=== PATIENT | female | born 1955 | race Asian ===

== ENCOUNTER 2016-06-24 11:23 | Inpatient (IN) | payer OTHER ==
--- NOTE | 2016-06-24 11:48 | EDPHY ---
General - History Smoking Status: Never smoked Narrative: CHIEF COMPLAINT: Left hip pain, fall HISTORY OF PRESENT ILLNESS: patient was walking at work yesterday when she tripped walking through a door while carrying heavy items. She reports landing on her left side of her body. this occurred around 3:30 p.m. yesterday. Denies striking her head or loss of consciousness. No neck pain. No chest or back pain. She noted some numbness of the left hip at that time, but as the afternoon on she noted pain. This was Mild at 1st but now severe. Severe enough that she has difficulty bearing weight. She can move the hip and knee but it is incredibly painful for her to do so and bear weight. Unable to walk secondary to pain. Radiates into the hip joint. No pain in the ipsilateral distal thigh, knee, ankle or foot. No lower back pain. No numbness or tingling at this time. No other associated complaints or modifying factors PRIOR ORTHO INJURIES: none ESTABLISHED ORTHOPEDIST: none REVIEW OF SYSTEMS: Ten systems reviewed and are negative unless otherwise noted in the HPI EXAMINATION General Appearance: Alert, no distress Head: normocephalic, atraumatic Eyes: Pupils equal and round, no conjunctival pallor or injection ENT, Mouth: Mucous membranes moist Neck: Normal inspection Respiratory: No dyspnea or retractions. No distress Cardiovascular: Pulses normal throughout. symmetric radial pulses are 2+. Symmetric DP and PT pulses are 2+. Brisk cap refill Gastrointestinal: No distention . No tenderness. Back: non-tender, no bony abnormalities Neurological: A&O, sensory symmetric, strength symmetric In all limbs. Skin: Warm and dry, no rash . No contusion, hematoma, abrasion or laceration Extremities: there is point tenderness over the left greater trochanter and at the left hip joint. Range of motion is limited secondary to pain, but she can flex and extend the hip, and range of motion of the left knee, ankle and foot are fully intact. There is no cyanosis or pallor. No evidence of compartment syndrome. Psychiatric: Mood and affect normal DIFFERENTIAL DIAGNOSES: Including but not limited to hip fracture, intertrochanteric fracture, contusion, hematoma, soft tissue injury MDM: 11:45 a.m. mechanical fall with left-sided hip pain over the true joint and the greater trochanter. She has no complaints distal to the injury. No numbness or tingling. She has some weakness of the hip due to pain. She is able to range the hip and knee with very painful to do so. X-ray has been ordered. 1:00 p.m. left femoral neck fracture that is minimally displaced. Neurovascular intact distally. No trauma elsewhere. I have discussed the case with the on-call orthopedist Dr. Crouch. He is requesting a CT scan, and he is also requesting that I admit the patient to the hospitalist. I have informed the patient this scenario and she is okay with the CT scan and admission. Hospitalist has been paged. 1:10 p.m. I have discussed the case with the hospitalist (Crystal), and the patient has been accepted to Dr. Dalton. she will be admitted in stable condition. Will obtain the laboratories for preoperative, as well as the CT scan before going to the floor 2:28 p.m. notified by radiologist Dr. Min. CT scan of the hip confirms previous suspected femoral neck fracture. Minimal angulation. There is impaction. No other abnormalities noted. ED Precautions: Worsening pain. Erythema, edema, cyanosis, pallor, paresthesia or anesthesia. SUPERVISION: This patient was independently evaluated without the aide of supervising physician. (Harvey Barba) - Objective Vital Signs: Initial Vital Signs Temperature (C) 36.8 C 06/24/16 11:29 Heart Rate 86 06/24/16 11:29 Respiratory Rate 16 06/24/16 11:29 Blood Pressure 123/86 H 06/24/16 11:29 O2 Sat (%) 92 06/24/16 11:29 O2 Delivery Mode Room Air Allergies/Adverse Reactions: No Known Allergies Allergy (Unverified 01/08/15 14:23) Home Medications: Medication Instructions Recorded NK [No Known Home Meds] 06/24/16 ED Course Discussion: I did not see this patient while she was in the emergency department. However her care was discussed with the PA while the patient was in the department. I agree with treatment plan and management (Bari Cruz) Departure - Departure Disposition: [facility] Acute Clinical Impression: Injury of left hip Qualifiers: Encounter type: initial encounter Qualified Code(s): S79.912A - Unspecified injury of left hip, initial encounter Femoral neck fracture Qualifiers: Encounter type: initial encounter Fracture type: closed Laterality: left Qualified Code(s): S72.002A - Fracture of unspecified part of neck of left femur , initial encounter for closed fracture Condition: Good
[2016-06-24] MEDS ORDERED: TEMAZEPAM 15 MG CAP PO PRN (13:35)
[2016-06-24] MEDS ORDERED: ONDANSETRON DISINTEGRATING 4 MG TAB PO PRN (13:35)
[2016-06-24] MEDS ORDERED: NS 1,000 ML IV SCH (13:45)
[2016-06-24] MEDS ORDERED: BUPIVACAINE/EPI 0.5% 30 ML SDV ONE (13:53)
[2016-06-24 13:54] LABS: % IMMATURE GRANULYOCYTES 0.3 % (0.0-1.1); ABSOLUTE IMMATURE GRANULOCYTES 0.02 10^3/uL (0.00-0.10); ADD DIFF? NO; ADD MORPH? NO; ADD SCAN? NO; ATYPICAL LYMPHOCYTE FLAG 10 (0-99); FRAGMENT RBC FLAG 0 (0-99); HEMATOCRIT 40.3 % (38.0-47.0); HEMOGLOBIN 13.6 g/dL (12.6-16.3); LEFT SHIFT FLG 0 (0-99); LIPEMIA HEMOLYSIS FLAG 80 (0-99); MEAN CELL HEMOGLOBIN 31.2 pg (27.9-34.1); MEAN CELL HEMOGLOBIN CONCENTR. 33.7 g/dL (32.4-36.7); MEAN CELL VOLUME 92.4 fL (81.5-99.8); MEAN PLATELET VOLUME 10.1 fL (8.7-11.7); PLATELET CLUMPS FLAG 0 (0-99); PLATELET COUNT 207 10^3/uL (150-400); RED BLOOD CELL COUNT 4.36 10^6/uL (4.18-5.33); RED CELL DISTRIBUTION WIDTH 12.3 % (11.5-15.2)
[2016-06-24] MEDS ORDERED: SKIN ADHESIVE (DERMABOND) 1 EACH TP ONE (13:54)
--- NOTE | 2016-06-24 13:57 | CPEKG ---
Heart Rate: 78 RR Interval: 769 P-R Interval: 172 QRSD Interval: 78 QT Interval: 392 QTC Interval: 447 P Center Point: 51 QRS Center Point: 14 T Wave Center Point: 6 EKG Severity - NORMAL ECG - EKG Impression: SINUS RHYTHM Electronically Signed By: Eugenio Benson 25-Jun-2016 10:49:45
[2016-06-24 14:11] LABS: INR 1.07 (0.83-1.16); PROTIME(PATIENT) 13.8 SEC (12.0-15.0)
[2016-06-24 14:12] LABS: APTT 28.4 SEC (23.0-38.0)
[2016-06-24 14:21] LABS: ANION GAP 9 mEq/L (8-16); CALCIUM 9.1 mg/dL (8.5-10.4); CARBON DIOXIDE 23 mEq/l (22-31); CHLORIDE 105 mEq/L (97-110); CREATININE 0.5 mg/dL (0.6-1.0); GLOMERULAR FILTRATION RATE > 60; GLUCOSE 95 mg/dL (70-100); SODIUM 137 mEq/L (134-144)
--- NOTE | 2016-06-24 15:10 | GHP ---
[f rep st] HISTORY AND PHYSICAL DATE OF ADMISSION: 06/24/2016 CHIEF COMPLAINT: Fall and left hip pain. HISTORY OF PRESENT ILLNESS: This is a 60-year-old healthy female, who fell yesterday. She was at [place] [employer], carrying something heavy, missed 1 step which was about a foot tall and fell. She landed on he r left hip. She did not hit her head. She did not lose consciousness. When this happened, she inrony green had some left leg numbness, which resolved after about 30 minutes. She has been unable to be ar weight at all due to severe pain since the fall. She currently has feeling in her left foot and able to move her left foot. PAST MEDICAL/SURGICAL HISTORY: None. MEDICATIONS: None. ALLERGIES: None. FAMILY HISTORY: Her grandmother had cancer. SOCIAL HISTORY: She rarely drinks alcohol. She does not smoke. REVIEW OF SYSTEMS: Ten-point review of systems is conducted and is negative, except per HPI. PHYSICAL EXAM: VITAL SIGNS: Blood pressure 123/86, heart rate is 86, respiration rate 16, sat 92% on room air, temperature 36.8. GENERAL: The patient is a very pleasant female, who appears comfort able in bed, in no acute distress. HEENT: Pupils equal, round, reactive. Mucous membranes are kena st. CARDIOVASCULAR: Regular rate and rhythm. No murmurs, rubs, or gallops. PULMONARY: Lungs molly ar to auscultation bilaterally. ABDOMEN: Soft, nontender, nondistended. SKIN: No rash. : No Blak[place]. NEUROLOGIC: She is alert and oriented x3. She is moving all extremities. PSYCHIATRIC: No rmal mood and affect. EXTREMITIES: Her left extremity is mildly edematous in her left hip. She has a very palpable left dorsalis pedis. She has sensation and motor intact in the left foot. LABS: CBC is unremarkable. Her chemistries and coag panel are pending. DATA: 1. I discussed this with Harvey Barba, will admit to med/surg. 2. I personally viewed and interpreted her EKG. It shows T-wave inversions in V1 and V2, otherwise sinus rhythm. 3. Hip x-ray, which I personally viewed and interpreted, shows possible likely left femoral neck fr acture. IMPRESSION AND PLAN: This is a 60-year-old female with left hip fracture. 1. Left hip fracture: Dr. Crouch has been consulted. Will likely need operative fixation. She is able to attain 4 METs, has a normal EKG. Chest x-ray will be obtained, though I do not expect to f ind anything. She will likely be cleared for the operating room. She is low risk given her RI sc ore. 2. Fall: I suspect that this is mechanical. I do not suspect that this was precipitated by any mo re of a significant event. /[id number]/MODL
[2016-06-24] MEDS ORDERED: MIDAZOLAM 2 MG/2 ML VIAL ONE (16:49)
[2016-06-24] MEDS ORDERED: fentaNYL 250 MCG/5 ML INJ ONE (16:53)
[2016-06-24] MEDS ORDERED: LIDOCAINE 2% 100 MG/5 ML SYR IVP ONE (16:54)
[2016-06-24] MEDS ORDERED: DEXAMETHASONE 4 MG/ML VIAL ONE ×2 (16:54)
[2016-06-24] MEDS ORDERED: ROCURONIUM 50 MG/5 ML VIAL ONE (16:54)
[2016-06-24] MEDS ORDERED: METOCLOPRAMIDE 10 MG/2 ML VIAL ONE (16:54)
[2016-06-24] MEDS ORDERED: PROPOFOL 200 MG/20 ML VIAL ONE (16:54)
[2016-06-24] MEDS ORDERED: CEFAZOLIN 2 GM/DEXTROSE/100 ML BAG IV ONE (17:00)
[2016-06-24] MEDS ORDERED: SUGAMMADEX SODIUM 200 MG/2 ML VIAL IVP ONE (18:06)
--- NOTE | 2016-06-24 18:32 | POSTOPPROG ---
Post Op Note Date of Operation: 06/24/16 Surgeon: Valeriy Crouch Anesthesia: GET(General Endotracheal) Pre-op Diagnosis: left hip fracture Post-op Diagnosis: same Indication: same Procedure: left hip orif Inf/Abcess present in the surg proc area at time of surgery?: No Depth: Superfical (Skin SQ) EBL: 50-100
[2016-06-24] MEDS ORDERED: D5W 1/2 NS W/ 20 KCl/L 1,000 ML IV SCH (18:45)
[2016-06-24] MEDS ORDERED: fentaNYL 100 MCG/2 ML INJ ONE (19:06)
[2016-06-24] MEDS: oxyCODONE IR 5 MG TAB PO PRN (20:22)
--- NOTE | 2016-06-25 03:31 | GCON ---
[f rep st] CONSULTATION DATE OF CONSULTATION: 06/24/2016 CHIEF COMPLAINT: Left femoral neck fracture. HISTORY OF PRESENT ILLNESS: A 60-year-old female, who fell yesterday. She was at work. She took a misstep, landed on her hip. She had some numbness and the inability to bear weight. She waited un til the next day to see if this resolved and it did not. She was brought to the emergency room wher e she was diagnosed with a left femoral neck fracture, admitted to the hospital. She denies other t rauma or other injuries. PAST MEDICAL HISTORY: Denies. MEDICATIONS: Denies. ALLERGIES: Denies. FAMILY HISTORY: Grandmother with cancer. SOCIAL HISTORY: She rarely drinks. She does not smoke. REVIEW OF SYSTEMS: 10-point review of systems negative other than above. PHYSICAL EXAM: VITAL SIGNS: Stable. GENERAL: She is alert, oriented, does not appear in any acut e distress. She is in bed. HEAD: Normocephalic. EYES: Equal and reactive. MOUTH: Moist mucous membranes. NECK: Supple. CARDIOVASCULAR: She has regular rate and rhythm. PULMONARY: Lungs sh ow symmetric chest rise. ABDOMEN: Soft. UPPER EXTREMITIES: Without abnormality. Full motion. N EUROLOGIC: Intact. SKIN: Intact to the left lower extremity. I did not move this given the fract ure. She describes pain in her left hip pain. She is distally neurovascularly intact. 5/5 EHL adrian siflexion, plantar flexion, and FHL of her toe. Sensation, pulses intact to right lower extremity a nd can range well. No pain to palpation, is neurovascularly intact. Her x-rays and CT show a minimally displaced impacted femoral neck fracture in valgus. ASSESSMENT: Left femoral neck fracture. PLAN: I discussed the nature of her condition, treatment options with her. I recommended a reducti on and pinning with operative stabilization with 3 screws. Given the impacted nature, the stable na ture of this, and it was minimally displaced, I felt this could be fixed and would likely heal for h er. I discussed risks in particular of nonunion or displacement of the fracture and failure of the hardware which would necessitate total hip. Also discussed risks of nerve injury, wound complicatio ns, pain. She asked to proceed. Informed consent was obtained. All questions were answered. She was marked preoperatively. She will be admitted to the hospital. /[id number]/MODL
--- NOTE | 2016-06-25 03:51 | GOP ---
[f rep st] OPERATIVE REPORT DATE OF OPERATION: 06/24/2016 SURGEON: Valeriy Crouch MD BEARING RING ASSEMBLER: None. ANESTHESIA: General. PREOPERATIVE DIAGNOSIS: Left femoral neck fracture. POSTOPERATIVE DIAGNOSIS: Left femoral neck fracture. PROCEDURE PERFORMED: Open reduction internal fixation left femoral neck fracture. FINDINGS: SPECIMENS: None. ESTIMATED BLOOD LOSS: 20 mL. INDICATIONS: This is a 60-year-old female, with a fall and inability to bear weight. Counseled on risks, benefits of operative stabilization of this versus replacement. Elected for this as this was a stable valgus impacted and minimally displaced. Elected to proceed. Informed consent obtained. All questions were answered. She was marked preoperatively. We discussed risks of nonunion, malun ion, need for total hip, failure of the concert, complications of nerve injury. DESCRIPTION OF PROCEDURE: She was taken to the operating room, and anesthesia was induced. She was given 1 g Ancef. She was positioned on the fracture table. Sterilely prepped and draped in the no rmal fashion. Time-out was performed verifying site, side, location with agreement of the team. We made an incision after localizing a starting point. I placed a guidewire up the femoral neck. C hecked this on AP and lateral x-ray. Placed three others trying to achieve triangular construct. M easured these, and sequentially placed screws across this and felt like the fracture was stable. Th e final x-rays were checked and taken, verifying the fracture had not moved, stability of construct, and locations of screws. I irrigated and closed with 2-0 Vicryl, 3-0 Monocryl, and Dermabond. She was taken to PACU in stable condition. IMPLANTS: Synthes three 6.5 cannulated short thread screws. COMPLICATIONS: None. DRAINS: None. CONDITION: Stable. /[id number]/MODL
[2016-06-25] MEDS: oxyCODONE IR 5 MG TAB PO PRN (05:47)
[2016-06-25] MEDS: ENOXAPARIN 40 MG/0.4 ML SYR SC SCH (08:55)
--- NOTE | 2016-06-25 11:08 | HOSPPROG ---
Hospitalist Progress Note Assessment/Plan: patient is a 60-year-old female who fell yesterday at work. She was carrying something heavy and missed a step and fell. She landed on her left hip. Her hip x-ray showed a left femoral neck fracture. Today is my 1st encounter with the patient. Chart reviewed. * Left hip fracture - postop day 1. Status post ORIF * gait instability - PT and OT to see *dvt prophylaxis: LMWH *plan: repeat labs in a.m./ patient will require another midnight stay for further evaluation/ she had recent surgery, significant pain/ lives alone and has steps. Subjective: Gabi is having some pain at her hip. Objective: Vital Signs Temp Pulse Resp BP Pulse Ox 36.4 C 65 14 91/62 L 97 06/25/16 08:02 06/25/16 08:02 06/25/16 08:02 06/25/16 08:02 06/25/16 08:02 Laboratory Results 06/24/16 13:42 06/24/16 13:42 06/24/16 06/25/16 06/26/16 05:59 05:59 05:59 Intake Total 1700 Output Total 370 Balance 1330 PT 13.8 SEC (12.0-15.0) 06/24/16 13:42 INR 1.07 (0.83-1.16) 06/24/16 13:42 - Physical Exam Constitutional: no apparent distress, uncomfortable Eyes: PERRL Ears, Nose, Mouth, Throat: hearing normal Cardiovascular: regular rate and rhythym Respiratory: no respiratory distress Gastrointestinal: normoactive bowel sounds Skin: warm Musculoskeletal: muscular tenderness, generalized weakness Neurologic: AAOx3 Psychiatric: interacting appropriately ICD10 Worksheet Patient Problems: Problems Problem Status Onset Femoral neck fracture Acute Injury of left hip Acute
[2016-06-25] MEDS: ACETAMINOPHEN 325 MG TAB PO PRN ×3 (12:29→21:31)
--- NOTE | 2016-06-25 12:59 | SOAPPROG ---
SOAP Progress Note Assessment/Plan: Assessment: status post left hip ORIF 06/24/2016 Plan: she is doing well today. Weightbearing as tolerated left lower extremity Chemo and mechanical DVT prophylaxis She may leave the dressing intact until we see her back as she may shower over this. Follow-up in my clinic in 2 weeks she has my card make an appointment 06/25/16 12:57 Subjective: minimal pain in the hip when she is laying there for some pain when she ambulates Objective: Vital Signs Temp Pulse Resp BP Pulse Ox 36.6 C 75 14 113/71 92 06/25/16 12:13 06/25/16 12:13 06/25/16 12:13 06/25/16 12:13 06/25/16 12:13 Laboratory Results 06/24/16 13:42 06/24/16 13:42 06/24/16 06/25/16 06/26/16 05:59 05:59 05:59 Intake Total 1700 Output Total 370 Balance 1330 PT 13.8 SEC (12.0-15.0) 06/24/16 13:42 INR 1.07 (0.83-1.16) 06/24/16 13:42 dressing is intact is clean and dry. She is neurovascular intact distally. Again rotated hip with minimal discomfort. ICD10 Worksheet Patient Problems: Problems Problem Status Onset Femoral neck fracture Acute Injury of left hip Acute
[2016-06-26 05:19] LABS: % IMMATURE GRANULYOCYTES 0.1 % (0.0-1.1); ABSOLUTE IMMATURE GRANULOCYTES 0.01 10^3/uL (0.00-0.10); ADD DIFF? NO; ADD MORPH? NO; ADD SCAN? NO; ATYPICAL LYMPHOCYTE FLAG 10 (0-99); FRAGMENT RBC FLAG 0 (0-99); HEMATOCRIT 35.7 % (38.0-47.0); LEFT SHIFT FLG 0 (0-99); LIPEMIA HEMOLYSIS FLAG 80 (0-99); MEAN CELL HEMOGLOBIN CONCENTR. 33.6 g/dL (32.4-36.7); MEAN CELL VOLUME 95.2 fL (81.5-99.8); MEAN PLATELET VOLUME 10.3 fL (8.7-11.7); PLATELET CLUMPS FLAG 10 (0-99); PLATELET COUNT 189 10^3/uL (150-400); RED BLOOD CELL COUNT 3.75 10^6/uL (4.18-5.33); RED CELL DISTRIBUTION WIDTH 12.2 % (11.5-15.2)
[2016-06-26 05:37] LABS: ANION GAP 6 mEq/L (8-16); CALCIUM 8.6 mg/dL (8.5-10.4); CARBON DIOXIDE 22 mEq/l (22-31); CHLORIDE 108 mEq/L (97-110); CREATININE 0.4 mg/dL (0.6-1.0); GLOMERULAR FILTRATION RATE > 60; GLUCOSE 113 mg/dL (70-100); POTASSIUM 3.7 mEq/L (3.5-5.2); SODIUM 136 mEq/L (134-144)
[2016-06-26 07:19] VITALS: RESP 16
[2016-06-26] MEDS: ENOXAPARIN 40 MG/0.4 ML SYR SC SCH (08:15)
[2016-06-26] MEDS: oxyCODONE IR 5 MG TAB PO PRN ×2 (08:16→16:49)
--- NOTE | 2016-06-26 13:25 | SOAPPROG ---
JAGDISH Progress Note Assessment/Plan: Assessment: status post left hip ORIF 06/24/2016 Plan: she is doing well today. Weightbearing as tolerated left lower extremity Lovenox 40 mg once a day for 10 days total aspirin 325 mg daily for 4 weeks after Lovenox is completed follow up with me in clinic in 2 weeks she has my card to make an appointment She may leave the dressing intact until we see her back as she may shower over this. may DC from my standpoint 06/25/16 12:57 06/26/16 13:24 Subjective: minimal pain Objective: Vital Signs Temp Pulse Resp BP Pulse Ox 37.1 C 66 16 90/59 L 95 06/26/16 07:17 06/26/16 07:17 06/26/16 07:17 06/26/16 07:17 06/26/16 07:17 Laboratory Results 06/26/16 04:57 06/26/16 04:57 06/25/16 06/26/16 06/27/16 05:59 05:59 05:59 Intake Total 1700 1850 Output Total 370 900 Balance 1330 950 PT 13.8 SEC (12.0-15.0) 06/24/16 13:42 INR 1.07 (0.83-1.16) 06/24/16 13:42 dressing clean dry and intact good mobility neurovascular intact ICD10 Worksheet Patient Problems: Problems Problem Status Onset Femoral neck fracture Acute Injury of left hip Acute
[2016-06-26 16:11] VITALS: BP 115/74; PULSE 83; TEMP 98.6; O2SAT 90
--- NOTE | 2016-06-26 16:28 | PDIAF ---
- Diagnosis Diagnosis: left hip fracture s/p left hip ORIF Code Status: Full Code - Medication Management Discharge Medications: Medications to Continue on Transfer Acetaminophen [Tylenol 325mg (*)] 650 mg PO Q4HRS PRN #0 tab 06/26/16 [Last Taken Unknown] Enoxaparin [Lovenox 40 MG (*)] 40 mg SC DAILY #9 syr 06/26/16 [Last Taken Unknown] oxyCODONE IR [Oxycodone Ir (*)] 5 - 10 mg PO Q3HRS PRN #0 tab 06/26/16 [Last Taken Unknown] Discharge Medications: Refer to the Discharge Home Medication list for PRN reason. - Orders Services needed: Physical Therapy, Occupational Therapy Diet Recommendation: no restrictions on diet Diet Texture: Regular Texture Diet Activity/Weight Bearing Restrictions: wbat Additional: take lovenox for 9 more days, then follow with aspirin 325 mg daily x 4 weeks. Make an appt to see Dr Crouch in the next 2 weeks. - Labs/Radiology BMP Date: 07/02/16 CBC Date: 07/02/16 - Follow Up Care Current Providers and Referrals: Valeriy Crouch MD [Medical Doctor] - As per Instructions (call for apt. to be seen in office in 2 weeks from surgery) NONE *PRIMARY CARE P,. [Primary Care Provider] - As per Instructions
--- NOTE | 2016-06-26 17:16 | HOSPPROG ---
Hospitalist Progress Note Assessment/Plan: patient is a 60-year-old female who fell yesterday at work. She was carrying something heavy and missed a step and fell. She landed on her left hip. Her hip x-ray showed a left femoral neck fracture. * Left hip fracture - .Status post ORIF * gait instability - PT and OT to see *dvt prophylaxis: LMWH *plan: dc to [facility] today/ patient lives alone with steps. She would benefit foromthis. Subjective: Hatsue is feeling well/ feels better about going to rehab till she feels stronger. Objective: Vital Signs Temp Pulse Resp BP Pulse Ox 37.0 C 83 16 115/74 90 L 06/26/16 16:10 06/26/16 16:10 06/26/16 16:10 06/26/16 16:10 06/26/16 16:10 Laboratory Results 06/26/16 04:57 06/26/16 04:57 06/25/16 06/26/16 06/27/16 05:59 05:59 05:59 Intake Total 1700 1850 500 Output Total 370 900 400 Balance 1330 950 100 PT 13.8 SEC (12.0-15.0) 06/24/16 13:42 INR 1.07 (0.83-1.16) 06/24/16 13:42 - Physical Exam Constitutional: no apparent distress, appears nourished, not in pain Eyes: PERRL Ears, Nose, Mouth, Throat: hearing normal Cardiovascular: regular rate and rhythym Respiratory: no respiratory distress Gastrointestinal: normoactive bowel sounds Skin: warm Musculoskeletal: generalized weakness Neurologic: AAOx3 Psychiatric: interacting appropriately ICD10 Worksheet Patient Problems: Problems Problem Status Onset Femoral neck fracture Acute Injury of left hip Acute
--- NOTE | 2016-06-26 17:38 | GDS ---
DISCHARGE DIAGNOSES: 1. Left hip fracture, status post open reduction/internal fixation. 2. Gait instability. CONSULTATIONS DURING STAY: Dr. Crouch with Orthopedics. BRIEF HISTORY: The patient is a 60-year-old healthy female, who fell. She was at work carrying something heavy. She missed a high step that was a foot tall and fell, subsequently landing on her left hip. She had severe pain. She did not lose any consciousness. On admission, it was noted that she had a left hip fracture. She was seen by Dr. Crouch and had surgery. HOSPITAL COURSE: Per problem: 1. Left hip fracture: She is status post ORIF. She is doing quite well but will go to rehab for strengthening. 2. Gait instability. PT/OT. PENDING LABORATORY AND TESTS: None. CONDITION AT DISCHARGE: Stable. Blood pressure is 115/74, heart rate is 83, respiratory rate is 16, O2 sat's in room air 98%, temperature is 37 Celsius. MEDICATIONS AT DISCHARGE: Please see the EMR. DISCHARGE INSTRUCTIONS: 1. To follow up with Dr. Crouch in 1-2 weeks. 2. Full weightbearing as tolerated. 3. If she develops fever, chills, chest pain, or shortness of breath, return to the ER. TIME SPENT: Greater than 30 minutes discharging and coordinating care. /[id number]/MODL MTDD
== END 2016-06-26 17:00 | DRG 482 ==
LOC: F3N 14:20
PROVIDERS: ADMIT Student in an Organized Health Care Education/Training Program; ATTEND Student in an Organized Health Care Education/Training Program
PROC: 0QS704Z Reposition Left Upper Femur with Internal Fixation Device, Open Approach (ICD-10-PCS; principal; 2016-06-24 16:45)
DX: S72.002A Fracture of unspecified part of neck of left femur, initial encounter for closed fracture (principal); W01.0XXA Fall on same level from slipping, tripping and stumbling without subsequent striking against object, initial encounter; Y92.89 Other specified places as the place of occurrence of the external cause
CPT/HCPCS: 92507-GN; 92523-GN; 97116-GP; 97161-GP; 97165-GO; 97530-GP; 97535-GO; C1713; C1769; J0690; J1100; J1650; J2001; J2250; J2704; J2765; J3010

== ENCOUNTER 2016-07-29 12:11 | Inpatient (IN) | payer OTHER ==
[2016-07-29 13:34] LABS: % IMMATURE GRANULYOCYTES 0.4 % (0.0-1.1); ABSOLUTE IMMATURE GRANULOCYTES 0.03 10^3/uL (0.00-0.10); ADD DIFF? NO; ADD MORPH? NO; ADD SCAN? NO; ATYPICAL LYMPHOCYTE FLAG 10 (0-99); FRAGMENT RBC FLAG 0 (0-99); HEMATOCRIT 36.9 % (38.0-47.0); HEMOGLOBIN 12.8 g/dL (12.6-16.3); LEFT SHIFT FLG 0 (0-99); LIPEMIA HEMOLYSIS FLAG 90 (0-99); MEAN CELL HEMOGLOBIN 31.4 pg (27.9-34.1); MEAN CELL HEMOGLOBIN CONCENTR. 34.7 g/dL (32.4-36.7); MEAN CELL VOLUME 90.7 fL (81.5-99.8); MEAN PLATELET VOLUME 9.4 fL (8.7-11.7); PLATELET CLUMPS FLAG 0 (0-99); PLATELET COUNT 222 10^3/uL (150-400); RED BLOOD CELL COUNT 4.07 10^6/uL (4.18-5.33); RED CELL DISTRIBUTION WIDTH 11.7 % (11.5-15.2)
[2016-07-29 13:38] LABS: COLOR YELLOW; LEUKOCYTE ESTERASE,URINE 2+ (NEGATIVE); NITRITE,URINE NEGATIVE (NEGATIVE); PH,URINE 8.5 (5.0-7.5)
[2016-07-29 13:44] LABS: INR 1.12 (0.83-1.16); PROTIME(PATIENT) 14.1 SEC (12.0-15.0)
--- NOTE | 2016-07-29 13:44 | UCPHY ---
H & P Patient Type: Established Chief Complaint Nursing Narrative: shakey and sob starting yesterday. left left sx 1 month ago after fall and break Time Seen by Provider: 07/29/16 13:26 HPI/ROS: CHIEF COMPLAINT: Shaking, fever HISTORY OF PRESENT ILLNESS: this is a 60-year-old female presenting from her therapy appointment with complaints of feeling poorly, fever, and shaking. Patient had a left ORIF in June with discharge on June 26. She went to [facility] rehab. She apparently did well. She has now been home a receiving outpatient physical therapy. Patient went to her therapist appointment today and, as I understand it, was feeling poorly and noted to have a fever of 101. She drove herself to urgent care. While waiting to be seen the patient has become more anxious and was hyperventilating on initial evaluation. Patient reports no history of cold or cough symptoms, no congestion, no chest pain, no shortness of breath. She does report that 2 days ago she had mild dysuria. No vomiting. No rash. No history of PEs or DVTs. Patient also notes some discomfort in the posterior upper left thigh, near her prior surgical site. She also reports a headache. Denies chest pain. Denies vomiting, diarrhea, or lightheadedness. REVIEW OF SYSTEMS: Aside from elements discussed in the HPI, a comprehensive 10-point review of systems was reviewed and is negative. PAST MEDICAL HISTORY: ORIF left hip June 2016 SOCIAL HISTORY: She is living at home ambulatory well. Patient's [place] language is [place]. VITAL SIGNS Reviewed by me. GENERAL: Well-developed, well-nourished, anxious, tachypneic, hyperventilating. HEENT: Atraumatic. Eyes: No icterus, no injection. Mouth: Dry mucous membranes. No erythema or lesions. Neck: supple with no adenopathy. LUNGS: Clear to auscultation bilaterally, no wheezes, rhonchi or rales. CARDIAC: Tachycardic but regular, no rubs, murmurs or gallops. ABDOMEN: Soft, nontender, nondistended, bowel sounds normal. BACK: No CVA tenderness. EXTREMITIES: No trauma. No edema. Range of motion is normal throughout. Well- healing scar over the lateral left hip. Patient reports that she has some tenderness to deep palpation posterior to the scar. No erythema noted. No warmth. No swelling. NEURO: Alert and oriented, grossly nonfocal. SKIN: Warm and dry, no rash. PSYCHIATRIC: Normal mentation, no agitation. - Personal History Current Tetanus/Diphtheria Vaccine: No Current Tetanus Diphtheria and Acellular Pertussis (TDAP): No - Medical/Surgical History Hx Asthma: No Hx Chronic Respiratory Disease: No Hx Diabetes: No Hx Cardiac Disease: No Hx Renal Disease: No Hx Cirrhosis: No Hx Alcoholism: No Hx HIV/AIDS: No Hx Splenectomy or Spleen Trauma: No Other PMH: DENIES - Family History Significant Family History: No pertinent family hx - Social History Smoking Status: Never smoked Constitutional: Initial Vital Signs Temperature (C) 37.5 C 07/29/16 12:49 Heart Rate 108 H 07/29/16 12:49 Respiratory Rate 20 07/29/16 12:49 Blood Pressure 131/81 H 07/29/16 12:49 O2 Sat (%) 96 07/29/16 12:49 O2 Delivery Mode Room Air Allergies/Adverse Reactions: No Known Allergies Allergy (Verified 07/29/16 12:48) Home Medications: Medication Instructions Recorded oxyCODONE IR [Oxycodone Ir (*)] 5 - 10 mg PO Q3HRS PRN #0 tab 06/26/16 Medical Decision Making - Diagnostics Imaging: Xray: Chest x-ray was obtained. I viewed the images myself on the PACS system. My interpretation of the images is: No infiltrate. The radiology interpretation is: Pending. I discussed the results with the patient. ED Course/Re-evaluation: 60-year-old female presenting with a history of fever and not feeling well. She also reports mild dysuria 2 days ago. On examination she is hyperventilating, somewhat tremors, tachycardic, and tachypneic. Laboratory evaluation is remarkable for a lactic acid of 3.0., normal white count, normal creatinine, urinalysis with greater than 182 white cells per high- power field, 2+ leukocyte esterase. Severe Sepsis/Septic Shock Care Note The patient presents to the ED with urinary tract infection identified as an acute infection. The patient did have evidence of end-organ dysfunction and met criteria for severe sepsis. This condition was identified by myself at 1400. The patients vital signs are 134/97, heart rate 95, respiratory rate 44, O2 sat 100%. The patient has a venous lactic acid performed within 3 hours of the identification of severe sepsis which was found to be 3.0. The patient has blood cultures drawn and received ceftriaxone IV, per the severe sepsis treatment protocol. The initial lactate was elevated and rechecked within 6 hours of the identification time of severe sepsis and found to be: 2.0. Patient had a D-dimer drawn which is negative at 0.32. Chest x-ray is unremarkable. Patient remains tachypneic, and very anxious. Patient was transferred to the [facility] Course discussed with Dr. Juan Wynn. 3:15 p.m.: Patient was re-examined by myself. She has finished her saline bolus. She is feeling well although complaining of feeling slightly chilled. Respiratory rate is in the 20s. Denies shortness of breath or chest pain. Differential Diagnosis: Differential diagnosis for this patient's presenting complaint was considered including but not limited to pneumonia, urinary tract infection, pulmonary embolism, viral syndrome, and influenza. Consult/Admit Bed Type: Dr. Juan Wynn, med surg Critical Care Time: Critical care time spent by meDr. Diana exclusively with this patient was 30 minutes, exclusive of PA time and exclusive of procedures. The organ system at risk was infectious and I gave antibiotics and IV fluids to prevent worsening of the patients condition. Critical care time included obtaining history, performing a physical exam, bedside monitoring of interventions, collecting and interpreting tests and discussion with consultants but not including time spent performing procedures. - Data Points Laboratory Results: Laboratory Results 07/29/16 13:15 07/29/16 13:15 07/29/16 07/29/16 07/29/16 14:53 14:30 13:35 WBC RBC Hgb Hct MCV MCH MCHC RDW Plt Count MPV Neut % (Auto) Lymph % (Auto) [place] % (Auto) Eos % (Auto) Baso % (Auto) Nucleat RBC Rel Count Absolute Neuts (auto) Absolute Lymphs (auto) Absolute Monos (auto) Absolute Eos (auto) Absolute Basos (auto) Absolute Nucleated RBC Immature Gran % Immature Gran # PT INR APTT D-Dimer VBG Lactic Acid 2.0 mmol/L D mmol/L (0.7-2.1) Sodium Potassium Chloride Carbon Dioxide Anion Gap BUN Creatinine Estimated GFR Glucose Calcium Total Bilirubin 1.2 mg/dL mg/dL (0.1-1.4) Conjugated Bilirubin 0.4 mg/dL mg/dL (0.0-0.5) Unconjugated Bilirubin 0.8 mg/dL mg/dL (0.0-1.1) AST 27 IU/L IU/L (14-46) ALT 21 IU/L IU/L (9-52) Alkaline Phosphatase 56 IU/L IU/L (38-126) Total Protein 8.1 g/dL g/dL (6.3-8.2) Albumin 4.1 g/dL g/dL (3.5-5.0) Lipase 101.0 IU/L IU/L (23-300) Urine Color YELLOW Urine Appearance CLOUDY Urine pH 8.5 H (5.0-7.5) Ur Specific [place] 1.015 (1.002-1.030) Urine Protein 2+ H (NEGATIVE) Urine Ketones 1+ H (NEGATIVE) Urine Blood 1+ H (NEGATIVE) Urine Nitrate NEGATIVE (NEGATIVE) Urine Bilirubin NEGATIVE (NEGATIVE) Urine Urobilinogen 1.0 EU EU (0.2-1.0) Ur Leukocyte Esterase 2+ H (NEGATIVE) Urine RBC 0-1 /hpf /hpf (0-3) Urine WBC >182 /hpf H /hpf (0-3) Ur Epithelial Cells TRACE /lpf /lpf (NONE-1+) Urine Bacteria TRACE /hpf H /hpf (NONE SEEN) Urine Mucus TRACE /lpf /lpf (NONE-1+) Urine Yeast 1+ /hpf H /hpf (NONE SEEN) Ur Culture Indicated? INDICATED H (NI) Urine Glucose NEGATIVE (NEGATIVE) 07/29/16 07/29/16 07/29/16 13:15 13:15 13:15 WBC RBC Hgb Hct MCV MCH MCHC RDW Plt Count MPV Neut % (Auto) Lymph % (Auto) [place] % (Auto) Eos % (Auto) Baso % (Auto) Nucleat RBC Rel Count Absolute Neuts (auto) Absolute Lymphs (auto) Absolute Monos (auto) Absolute Eos (auto) Absolute Basos (auto) Absolute Nucleated RBC Immature Gran % Immature Gran # PT 14.1 SEC SEC (12.0-15.0) INR 1.12 (0.83-1.16) APTT 33.2 SEC SEC (23.0-38.0) D-Dimer 0.34 ug/mLFEU ug/mLFEU (0.00-0.50) VBG Lactic Acid Sodium 137 mEq/L mEq/L (134-144) Potassium 3.9 mEq/L mEq/L (3.5-5.2) Chloride 100 mEq/L mEq/L (97-110) Carbon Dioxide 20 mEq/l L mEq/l (22-31) Anion Gap 17 mEq/L H mEq/L (8-16) BUN 12 mg/dL mg/dL (7-23) Creatinine 0.5 mg/dL L mg/dL (0.6-1.0) Estimated GFR > 60 Glucose 93 mg/dL mg/dL (70-100) Calcium 9.5 mg/dL mg/dL (8.5-10.4) Total Bilirubin Conjugated Bilirubin Unconjugated Bilirubin AST ALT Alkaline Phosphatase Total Protein Albumin Lipase Urine Color Urine Appearance Urine pH Ur Specific [place] Urine Protein Urine Ketones Urine Blood Urine Nitrate Urine Bilirubin Urine Urobilinogen Ur Leukocyte Esterase Urine RBC Urine WBC Ur Epithelial Cells Urine Bacteria Urine Mucus Urine Yeast Ur Culture Indicated? Urine Glucose 07/29/16 07/29/16 13:15 13:15 WBC 8.32 10^3/uL 10^3/uL (3.80-9.50) RBC 4.07 10^6/uL L 10^6/uL (4.18-5.33) Hgb 12.8 g/dL g/dL (12.6-16.3) Hct 36.9 % L % (38.0-47.0) MCV 90.7 fL fL (81.5-99.8) MCH 31.4 pg pg (27.9-34.1) MCHC 34.7 g/dL g/dL (32.4-36.7) RDW 11.7 % % (11.5-15.2) Plt Count 222 10^3/uL 10^3/uL (150-400) MPV 9.4 fL fL (8.7-11.7) Neut % (Auto) 75.6 % H % (39.3-74.2) Lymph % (Auto) 13.9 % L % (15.0-45.0) [place] % (Auto) 9.7 % % (4.5-13.0) Eos % (Auto) 0.0 % L % (0.6-7.6) Baso % (Auto) 0.4 % % (0.3-1.7) Nucleat RBC Rel Count 0.0 % % (0.0-0.2) Absolute Neuts (auto) 6.29 10^3/uL 10^3/uL (1.70-6.50) Absolute Lymphs (auto) 1.16 10^3/uL 10^3/uL (1.00-3.00) Absolute Monos (auto) 0.81 10^3/uL H 10^3/uL (0.30-0.80) Absolute Eos (auto) 0.00 10^3/uL L 10^3/uL (0.03-0.40) Absolute Basos (auto) 0.03 10^3/uL 10^3/uL (0.02-0.10) Absolute Nucleated RBC 0.00 10^3/uL 10^3/uL (0-0.01) Immature Gran % 0.4 % % (0.0-1.1) Immature Gran # 0.03 10^3/uL 10^3/uL (0.00-0.10) PT INR APTT D-Dimer VBG Lactic Acid 3.0 mmol/L H mmol/L (0.7-2.1) Sodium Potassium Chloride Carbon Dioxide Anion Gap BUN Creatinine Estimated GFR Glucose Calcium Total Bilirubin Conjugated Bilirubin Unconjugated Bilirubin AST ALT Alkaline Phosphatase Total Protein Albumin Lipase Urine Color Urine Appearance Urine pH Ur Specific [place] Urine Protein Urine Ketones Urine Blood Urine Nitrate Urine Bilirubin Urine Urobilinogen Ur Leukocyte Esterase Urine RBC Urine WBC Ur Epithelial Cells Urine Bacteria Urine Mucus Urine Yeast Ur Culture Indicated? Urine Glucose Medications Given: Discontinued Medications Ceftriaxone Sodium 1 gm/ (Sodium Chloride) 100 mls @ 200 mls/hr IV EDNOW ONE PRN Reason: Protocol Stop: 07/29/16 14:28 Last Admin: 07/29/16 14:45 Dose: 100 mls Sodium Chloride (Ns *For Sepsis Order Set Only*) 1,361 ml 30 ml/kg (1361 ml) IV EDNOW ONE Stop: 07/29/16 14:00 Last Admin: 07/29/16 14:00 Dose: 1,361 ml Departure - Departure Disposition: [facility] Acute Clinical Impression: History of fever, Hyperventilation, Urosepsis Condition: Fair - PQRS PQRS Measurement: Not applicable
[2016-07-29 13:45] LABS: ANION GAP 17 mEq/L (8-16); APTT 33.2 SEC (23.0-38.0); CALCIUM 9.5 mg/dL (8.5-10.4); CARBON DIOXIDE 20 mEq/l (22-31); CHLORIDE 100 mEq/L (97-110); CREATININE 0.5 mg/dL (0.6-1.0); GLOMERULAR FILTRATION RATE > 60; GLUCOSE 93 mg/dL (70-100); POTASSIUM 3.9 mEq/L (3.5-5.2); SODIUM 137 mEq/L (134-144)
[2016-07-29 13:50] LABS: RBC,URINE 0-1 /hpf (0-3); WBC,URINE >182 /hpf (0-3)
[2016-07-29 13:51] LABS: BACTERIA TRACE /hpf (NONE SEEN); MUCUS TRACE /lpf (NONE-1+); YEAST 1+ /hpf (NONE SEEN)
[2016-07-29] MEDS ORDERED: NS 1,000 ML BAG *FOR SEPSIS ORDER SET ONLY IV ONE (13:59)
[2016-07-29 15:01] LABS: ALBUMIN 4.1 g/dL (3.5-5.0); BILIRUBIN,TOTAL 1.2 mg/dL (0.1-1.4); BILIRUBIN-CONJUGATED 0.4 mg/dL (0.0-0.5); BILIRUBIN-UNCONJUGATED 0.8 mg/dL (0.0-1.1); TOTAL PROTEIN 8.1 g/dL (6.3-8.2)
--- NOTE | 2016-07-29 17:52 | PDGENHP ---
History and Physical - Chief Complaint fever and shakes - History of Present Illness This is a 60-year-old female who broke her hip last month and underwent ORIF by Dr. Crouch instrument 10 days at the [facility] presented to the [facility] today with fever and shakes. She began having some urinary frequency and discomfort on Friday. She has been having urinary frequency that has worsened over the past few days and developed a fever. She denies any back pain. Her T-max was 101degrees today. She denies any nausea or vomiting. At the urgent care she tells me she had some trouble breathing and developed some numbness and tingling in her face and hands that has since gone away. At [facility] she received a dose of IV ceftriaxone as well as the 30 mL/kilogram bolus of saline. Currently she tells me she is feeling better and is no longer having fevers or shaking chills. History Information - Allergies/Home Medication List Allergies/Adverse Reactions: No Known Allergies Allergy (Verified 07/29/16 12:48) I have personally reviewed and updated: family history, medical history, social history, surgical history Past Medical History: Hospitalization 06/24/2016 with left hip fracture status post ORIF by Dr. Crouch - Social History Smoking Status: Never smoked Review of Systems ROS: 10pt was reviewed & negative except for what was stated in HPI & below Physical Exam Temp Pulse Resp BP Pulse Ox 37.8 C 93 20 117/71 94 07/29/16 17:13 07/29/16 17:13 07/29/16 17:13 07/29/16 17:13 07/29/16 17:13 Constitutional: no apparent distress, appears nourished, not in pain Eyes: PERRL, anicteric sclera, EOMI Ears, Nose, Mouth, Throat: moist mucous membranes, hearing normal, ears appear normal, no oral mucosal ulcers Cardiovascular: regular rate and rhythym, no murmur, rub, or gallop, No edema Respiratory: no respiratory distress, no rales or rhonchi, clear to auscultation , No rhonchi Gastrointestinal: normoactive bowel sounds, soft, non-tender abdomen, no palpable masses, No guarding, No rebound Genitourinary: no bladder fullness, no bladder tenderness Skin: warm, normal color, no rashes or abrasions, no fluctuance, no induration, other ( Healed left hip ORIF wound without signs of infection), No mottled Musculoskeletal: full muscle strength, no muscle tenderness, normal joint ROM, no joint effusions, other ( no CVA tenderness) Neurologic: AAOx3, CN II-XII Intact, No facial droop Psychiatric: interacting appropriately, not anxious, not encephalopathic, thought process linear Lab Data & Imaging Review 07/29/16 13:15 07/29/16 13:15 WBC 8.32 10^3/uL (3.80-9.50) 07/29/16 13:15 RBC 4.07 10^6/uL (4.18-5.33) L 07/29/16 13:15 Hgb 12.8 g/dL (12.6-16.3) 07/29/16 13:15 Hct 36.9 % (38.0-47.0) L 07/29/16 13:15 MCV 90.7 fL (81.5-99.8) 07/29/16 13:15 MCH 31.4 pg (27.9-34.1) 07/29/16 13:15 MCHC 34.7 g/dL (32.4-36.7) 07/29/16 13:15 RDW 11.7 % (11.5-15.2) 07/29/16 13:15 Plt Count 222 10^3/uL (150-400) 07/29/16 13:15 MPV 9.4 fL (8.7-11.7) 07/29/16 13:15 Neut % (Auto) 75.6 % (39.3-74.2) H 07/29/16 13:15 Lymph % (Auto) 13.9 % (15.0-45.0) L 07/29/16 13:15 [place] % (Auto) 9.7 % (4.5-13.0) 07/29/16 13:15 Eos % (Auto) 0.0 % (0.6-7.6) L 07/29/16 13:15 Baso % (Auto) 0.4 % (0.3-1.7) 07/29/16 13:15 Nucleat RBC Rel Count 0.0 % (0.0-0.2) 07/29/16 13:15 Absolute Neuts (auto) 6.29 10^3/uL (1.70-6.50) 07/29/16 13:15 Absolute Lymphs (auto) 1.16 10^3/uL (1.00-3.00) 07/29/16 13:15 Absolute Monos (auto) 0.81 10^3/uL (0.30-0.80) H 07/29/16 13:15 Absolute Eos (auto) 0.00 10^3/uL (0.03-0.40) L 07/29/16 13:15 Absolute Basos (auto) 0.03 10^3/uL (0.02-0.10) 07/29/16 13:15 Absolute Nucleated RBC 0.00 10^3/uL (0-0.01) 07/29/16 13:15 Immature Gran % 0.4 % (0.0-1.1) 07/29/16 13:15 Immature Gran # 0.03 10^3/uL (0.00-0.10) 07/29/16 13:15 PT 14.1 SEC (12.0-15.0) 07/29/16 13:15 INR 1.12 (0.83-1.16) 07/29/16 13:15 APTT 33.2 SEC (23.0-38.0) 07/29/16 13:15 D-Dimer 0.34 ug/mLFEU (0.00-0.50) 07/29/16 13:15 VBG Lactic Acid 2.0 mmol/L (0.7-2.1) D 07/29/16 14:30 Sodium 137 mEq/L (134-144) 07/29/16 13:15 Potassium 3.9 mEq/L (3.5-5.2) 07/29/16 13:15 Chloride 100 mEq/L (97-110) 07/29/16 13:15 Carbon Dioxide 20 mEq/l (22-31) L 07/29/16 13:15 Anion Gap 17 mEq/L (8-16) H 07/29/16 13:15 BUN 12 mg/dL (7-23) 07/29/16 13:15 Creatinine 0.5 mg/dL (0.6-1.0) L 07/29/16 13:15 Estimated GFR > 60 07/29/16 13:15 Glucose 93 mg/dL (70-100) 07/29/16 13:15 Calcium 9.5 mg/dL (8.5-10.4) 07/29/16 13:15 Total Bilirubin 1.2 mg/dL (0.1-1.4) 07/29/16 14:53 Conjugated Bilirubin 0.4 mg/dL (0.0-0.5) 07/29/16 14:53 Unconjugated Bilirubin 0.8 mg/dL (0.0-1.1) 07/29/16 14:53 AST 27 IU/L (14-46) 07/29/16 14:53 ALT 21 IU/L (9-52) 07/29/16 14:53 Alkaline Phosphatase 56 IU/L (38-126) 07/29/16 14:53 Total Protein 8.1 g/dL (6.3-8.2) 07/29/16 14:53 Albumin 4.1 g/dL (3.5-5.0) 07/29/16 14:53 Lipase 101.0 IU/L (23-300) 07/29/16 14:53 Urine Color YELLOW 07/29/16 13:35 Urine Appearance CLOUDY 07/29/16 13:35 Urine pH 8.5 (5.0-7.5) H 07/29/16 13:35 Ur Specific [place] 1.015 (1.002-1.030) 07/29/16 13:35 Urine Protein 2+ (NEGATIVE) H 07/29/16 13:35 Urine Ketones 1+ (NEGATIVE) H 07/29/16 13:35 Urine Blood 1+ (NEGATIVE) H 07/29/16 13:35 Urine Nitrate NEGATIVE (NEGATIVE) 07/29/16 13:35 Urine Bilirubin NEGATIVE (NEGATIVE) 07/29/16 13:35 Urine Urobilinogen 1.0 EU (0.2-1.0) 07/29/16 13:35 Ur Leukocyte Esterase 2+ (NEGATIVE) H 07/29/16 13:35 Urine RBC 0-1 /hpf (0-3) 07/29/16 13:35 Urine WBC >182 /hpf (0-3) H 07/29/16 13:35 Ur Epithelial Cells TRACE /lpf (NONE-1+) 07/29/16 13:35 Urine Bacteria TRACE /hpf (NONE SEEN) H 07/29/16 13:35 Urine Mucus TRACE /lpf (NONE-1+) 07/29/16 13:35 Urine Yeast 1+ /hpf (NONE SEEN) H 07/29/16 13:35 Ur Culture Indicated? INDICATED (NI) H 07/29/16 13:35 Urine Glucose NEGATIVE (NEGATIVE) 07/29/16 13:35 Visualized and Interpreted Chest x-ray results: Yes Chest X-Ray results: no infiltrate, normal, normal heart size Assessment & Plan Assessment: This is a 60-year-old female who underwent an ORIF of her left hip last month presented to [facility] today with: # severe sepsis with lactic acidosis that has since resolved most likely due to urinary tract infection plan: The patient has already received what appears to be adequate fluid resuscitation as well as antibiotic coverage with ceftriaxone. Blood and urine cultures are currently pending. Will continue maintenance IV fluids and and antipyretics as needed. Monitor for signs symptoms of recurrent severe sepsis or septic shock # anion gap metabolic acidosis most likely due to lactic acidosis in the setting sepsis plan: Repeat chemistry panel in the morning # resolved facial / extremity numbness in the setting of reported shortness of breath which I suspect was due to anxiety and hyperventilation plan: Will continue to monitor her respiratory status and consider further workup as indicated. Disposition: The patient will be admitted to the hospital under observation status at this time. Anticipated length of stay is uncertain at this time. Will order her low-molecular weight heparin for DVT prophylaxis
[2016-07-29] MEDS ORDERED: ONDANSETRON 4 MG/2 ML VIAL IVP PRN (18:02)
[2016-07-29] MEDS ORDERED: ACETAMINOPHEN 325 MG TAB PO PRN (18:02)
[2016-07-29] MEDS ORDERED: oxyCODONE IR 5 MG TAB PO PRN (18:03)
[2016-07-29] MEDS: D5W 1/2 NS W/ 20 KCl/L 1,000 ML IV SCH (19:27)
[2016-07-30] MEDS: D5W 1/2 NS W/ 20 KCl/L 1,000 ML IV SCH ×3 (03:40→20:21)
[2016-07-30 05:07] LABS: % IMMATURE GRANULYOCYTES 0.3 % (0.0-1.1); ABSOLUTE IMMATURE GRANULOCYTES 0.03 10^3/uL (0.00-0.10); ADD DIFF? NO; ADD MORPH? NO; ADD SCAN? NO; ATYPICAL LYMPHOCYTE FLAG 0 (0-99); FRAGMENT RBC FLAG 0 (0-99); HEMATOCRIT 34.8 % (38.0-47.0); HEMOGLOBIN 11.8 g/dL (12.6-16.3); LEFT SHIFT FLG 0 (0-99); LIPEMIA HEMOLYSIS FLAG 90 (0-99); MEAN CELL HEMOGLOBIN 31.3 pg (27.9-34.1); MEAN CELL HEMOGLOBIN CONCENTR. 33.9 g/dL (32.4-36.7); MEAN CELL VOLUME 92.3 fL (81.5-99.8); MEAN PLATELET VOLUME 9.4 fL (8.7-11.7); PLATELET CLUMPS FLAG 0 (0-99); PLATELET COUNT 188 10^3/uL (150-400); RED BLOOD CELL COUNT 3.77 10^6/uL (4.18-5.33); RED CELL DISTRIBUTION WIDTH 11.9 % (11.5-15.2)
[2016-07-30 05:23] LABS: ANION GAP 8 mEq/L (8-16); CALCIUM 8.4 mg/dL (8.5-10.4); CARBON DIOXIDE 20 mEq/l (22-31); CHLORIDE 107 mEq/L (97-110); CREATININE 0.5 mg/dL (0.6-1.0); GLOMERULAR FILTRATION RATE > 60; GLUCOSE 123 mg/dL (70-100); POTASSIUM 3.9 mEq/L (3.5-5.2); SODIUM 135 mEq/L (134-144)
[2016-07-30] MEDS: ENOXAPARIN 40 MG/0.4 ML SYR SC SCH (10:00)
--- NOTE | 2016-07-30 11:18 | HOSPPROG ---
Hospitalist Progress Note Assessment/Plan: # Sepsis- secondary to urinary source and bacteremia- tachycardia, fever improving overnight- WBC 9.6 this a.m. chest x-ray( personally reviewed and interpreted) no acute infiltrate oxygen saturations 98% on 2 L - continue empiric IV antibiotics - continue IV fluids until p.o. adequate # acute urinary tract infection/pyelonephritis- urinalysis abnormal on admission- urine culture pending - continue IV ceftriaxone # E coli bacteremia- presumed secondary to urinary source- sensitivities from blood cultures pending - continue IV ceftriaxone - check surveillance cultures now - if levofloxacin sensitive and surveillance cultures 24 hours negative patient can DC with p.o. levofloxacin for 14 day course # anion gap metabolic acidosis- secondary to sepsis- resolved with IV fluid resuscitation # prophylaxis Lovenox # diet as tolerated # disposition greater than 2 midnights as the patient requires additional diagnostics related to her bacteremia before safe to discharge home off IVs I have discussed the case with Infectious Disease- when surveillance cultures negative times 24 hours and sensitivities can make DC a antibiotic choice Subjective: feeling much better Objective: Vital Signs Temp Pulse Resp BP Pulse Ox 37.2 C 82 16 96/59 L 97 07/30/16 07:16 07/30/16 07:16 07/30/16 07:16 07/30/16 07:16 07/30/16 07:16 Laboratory Results 07/30/16 04:55 07/30/16 04:55 07/29/16 07/30/16 07/31/16 05:59 05:59 05:59 Intake Total 2436 Balance 2436 PT 14.1 SEC (12.0-15.0) 07/29/16 13:15 INR 1.12 (0.83-1.16) 07/29/16 13:15 - Physical Exam Constitutional: appears nourished Eyes: anicteric sclera Ears, Nose, Mouth, Throat: moist mucous membranes Cardiovascular: regular rate and rhythym Respiratory: no respiratory distress, no rales or rhonchi Gastrointestinal: normoactive bowel sounds, soft, non-tender abdomen Genitourinary: no bladder fullness Skin: warm Musculoskeletal: No asymmetric calves Neurologic: AAOx3 Psychiatric: interacting appropriately, not anxious Lymph, Heme, Immunologic: no cervical LAD ICD10 Worksheet Patient Problems: Problems Problem Status Onset History of fever Acute Hyperventilation Acute Femoral neck fracture Acute Injury of left hip Acute
[2016-07-31] MEDS: D5W 1/2 NS W/ 20 KCl/L 1,000 ML IV SCH (04:57)
[2016-07-31 05:36] LABS: HEMATOCRIT 36.8 % (38.0-47.0); HEMOGLOBIN 12.7 g/dL (12.6-16.3); MEAN CELL HEMOGLOBIN 30.9 pg (27.9-34.1); MEAN CELL HEMOGLOBIN CONCENTR. 34.5 g/dL (32.4-36.7); MEAN CELL VOLUME 89.5 fL (81.5-99.8); RED BLOOD CELL COUNT 4.11 10^6/uL (4.18-5.33); RED CELL DISTRIBUTION WIDTH 11.7 % (11.5-15.2)
--- NOTE | 2016-07-31 08:27 | HOSPPROG ---
Hospitalist Progress Note Assessment/Plan: This is a 60-year-old female who broke her hip last month and underwent ORIF. She did her rehab at [facility]. She presented to the [facility] with fever and shakes. She began having some urinary frequency and discomfort. Today is my first encounter with the patient, chart reviewed. # Sepsis- secondary to urinary source and bacteremia - tachycardia resolved/ afebrile - continue empiric IV antibiotics - continue IV fluids until p.o. adequate # acute urinary tract infection/pyelonephritis- -on ceftriaxone # E coli bacteremia- presumed secondary to urinary source- sensitivities from blood cultures pending - continue IV ceftriaxone - 2nd set of blood cx are pending/poss can dc on po Levaquin x 14 days - if levofloxacin sensitive and surveillance cultures 24 hours negative patient can DC with p.o. levofloxacin for 14 day course # anion gap metabolic acidosis- secondary to sepsis- resolved with IV fluid resuscitation -dc fluids # constipation: bowel protocol # prophylaxis Lovenox # diet as tolerated # disposition: awaiting for second set of blood cultures to be clear/ if clear , will dc later today Subjective: Gabi is feeling much better today. NO c/o pain. Objective: Vital Signs Temp Pulse Resp BP Pulse Ox 36.9 C 65 16 98/61 L 95 07/31/16 07:53 07/31/16 07:53 07/31/16 07:53 07/31/16 07:53 07/31/16 07:53 Laboratory Results 07/31/16 05:07 07/30/16 07/31/16 08/01/16 05:59 05:59 05:59 Intake Total 3615 Balance 3615 PT 14.1 SEC (12.0-15.0) 07/29/16 13:15 INR 1.12 (0.83-1.16) 07/29/16 13:15 - Physical Exam Constitutional: no apparent distress, appears nourished, other (thin) Eyes: PERRL Ears, Nose, Mouth, Throat: hearing normal Cardiovascular: regular rate and rhythym Respiratory: no respiratory distress Gastrointestinal: normoactive bowel sounds Skin: warm Musculoskeletal: no muscle tenderness Neurologic: AAOx3 Psychiatric: interacting appropriately ICD10 Worksheet Patient Problems: Problems Problem Status Onset History of fever Acute Hyperventilation Acute Femoral neck fracture Acute Injury of left hip Acute
[2016-07-31] MEDS: ENOXAPARIN 40 MG/0.4 ML SYR SC SCH (08:48)
[2016-07-31] MEDS ORDERED: LACTULOSE 20 GM/30 ML UDCUP PO PRN (10:30)
[2016-07-31] MEDS ORDERED: BISACODYL 10 MG SUPP PR PRN (10:30)
[2016-07-31] MEDS ORDERED: MAGNESIUM HYDROXIDE 30 ML UDCUP PO PRN (10:30)
[2016-07-31] MEDS: POLYETHYLENE GLYCOL 3350 17 GM PKT PO SCH (18:47)
[2016-07-31] MEDS: SENNOSIDES/DOCUSATE SODIUM TAB PO SCH (20:41)
[2016-07-31 22:50] VITALS: RESP 16; O2SAT 93
[2016-08-01] MEDS: SENNOSIDES/DOCUSATE SODIUM TAB PO SCH (07:49)
[2016-08-01] MEDS: POLYETHYLENE GLYCOL 3350 17 GM PKT PO SCH (07:49)
[2016-08-01] MEDS: ENOXAPARIN 40 MG/0.4 ML SYR SC SCH (07:49)
[2016-08-01 08:36] VITALS: BP 114/68; PULSE 72; TEMP 98.2
--- NOTE | 2016-08-01 09:23 | HOSPPROG ---
Hospitalist Progress Note Assessment/Plan: This is a 60-year-old female who broke her hip last month and underwent ORIF. She did her rehab at [facility]. She presented to the [facility] with fever and shakes. She began having some urinary frequency and discomfort. # Sepsis- secondary to urinary source and bacteremia - tachycardia resolved/ afebrile # acute urinary tract infection/pyelonephritis- -on ceftriaxone # E coli bacteremia- presumed secondary to urinary source- - 2nd set of blood cx show no growth/ spoke with micro - will dc on 14 days of levaquin # anion gap metabolic acidosis- resolved with IV fluid resuscitation # constipation: bowel protocol # prophylaxis Lovenox # diet as tolerated # disposition: dc home today/ will ask for CM to arrange for f/u care at [facility]s clinic/ she has no PCP for follow up Subjective: Gabi is feeling much better today. Objective: Vital Signs Temp Pulse Resp BP Pulse Ox 36.8 C 72 16 114/68 93 08/01/16 08:35 08/01/16 08:35 08/01/16 08:35 08/01/16 08:35 08/01/16 08:35 Laboratory Results 07/31/16 05:07 07/31/16 08/01/16 08/02/16 05:59 05:59 05:59 Intake Total 3615 Balance 3615 PT 14.1 SEC (12.0-15.0) 07/29/16 13:15 INR 1.12 (0.83-1.16) 07/29/16 13:15 - Physical Exam Constitutional: no apparent distress, appears nourished, other (thin) Eyes: PERRL Ears, Nose, Mouth, Throat: hearing normal Respiratory: no respiratory distress Skin: warm Musculoskeletal: full muscle strength Neurologic: AAOx3 Psychiatric: interacting appropriately, not anxious ICD10 Worksheet Patient Problems: Problems Problem Status Onset History of fever Acute Hyperventilation Acute Femoral neck fracture Acute Injury of left hip Acute
--- NOTE | 2016-08-01 10:24 | GDS ---
[f rep st] DISCHARGE SUMMARY DISCHARGE DIAGNOSES: 1. Sepsis secondary to a urinary tract source. 2. Acute urinary tract infection/pyelonephritis. 3. Escherichia coli bacteremia. 4. Anion gap metabolic acidosis. 5. Constipation. HISTORY: Briefly, the patient is a 60-year-old female who broke her hip last month and underwent an ORIF. After surgery, she went to rehabilitation at [facility] and did well, and then subsequently w ent home. She presented to the [facility] with fevers and chills and had some urinary frequency and discomfort. She was admitted for further care. HOSPITAL COURSE: 1. Sepsis, resolved. 2. Acute urinary tract infection, pyelonephritis. She was treated with ceftriaxone. 3. E coli bacteremia. This is presumed secondary to a urinary source. Her second set of blood cul tures showed no growth. She will be discharged home on Levaquin. 4. Anion gap metabolic acidosis, resolved. 5. Constipation, on bowel protocol. PENDING LABS AND TESTS: None. CONDITION ON DISCHARGE: Stable. VITAL SIGNS: Blood pressure is 114/68. Heart rate is 72. Respiratory rate is 16. O2 sats on room air 92%. Temperature is 36.8 Celsius. DISCHARGE MEDICATIONS: Please see the EMR. DISCHARGE INSTRUCTIONS: 1. She will be set up with a primary care provider at discharge. Further followup with [facility]. 2. Recommend that she start calcium and vitamin D because of her recent fracture. 3. If she develops any fever, chills, chest pain, shortness of breath, return to the ER. Greater than 30 minutes discharging and coordinating care. /[id number]/MODL
== END 2016-08-01 11:41 | disposition home or self-care (01) | DRG 872 ==
LOC: CED 12:11 → CEDHOLD 14:56 → INTOOBSV 14:56 → F3E 16:58 → OBSVTOIN 07-30 11:20
PROVIDERS: ADMIT Family Medicine; ATTEND Family Medicine
DX: A41.51 Sepsis due to Escherichia coli [E. coli] (principal); N10 Acute pyelonephritis; E87.2 Acidosis; K59.00 Constipation, unspecified
CPT/HCPCS: 71020-PO; 80048-PO; 80076-PO; 81003-PO; 81015-PO; 83605-PO; 83690-PO; 85025-PO; 85378-PO; 85610-PO; 85730-PO; 96361-PO; 96365-PO; 97161-GP; G0378; G0463-PO; J0696; J1650

== ENCOUNTER → 2017-04-17 | Outpatient (CLI) | payer OTHER | LOC: FIMAGING 12:12 | PROVIDERS: ATTEND Orthopaedic Surgery | DX: Z01.818 Encounter for other preprocedural examination (principal); M85.852 Other specified disorders of bone density and structure, left thigh ==

== ENCOUNTER 2017-05-01 07:34 | Inpatient (IN) | payer OTHER ==
[~2017-05-01 07:34] MED LIST: POVIDONE-IODINE 20 ML in SODIUM CL IRRIG SOLUTION 500 ML IRR ONE; ROPIVACAINE 0.2% 80 MG, EPINEPHrine 0.2 MG, KETOROLAC TROMETHAMINE 30 MG in SYRINGE 0 ML IU ONE; TRANEXAMIC ACID 1,000 MG in NS 100 ML IV ONE
[2017-05-01] MEDS ORDERED: ACETAMINOPHEN 325 MG TAB PO ONE (07:58)
[2017-05-01] MEDS ORDERED: ceFAZolin 2 GM/SWFI 2 GM/20 ML SYR IVP ONE (07:58)
[2017-05-01] MEDS ORDERED: FAMOTIDINE 20 MG TAB PO ONE (07:58)
[2017-05-01] MEDS ORDERED: DEXAMETHASONE 4 MG/ML VIAL IVP ONE (07:58)
[2017-05-01] MEDS ORDERED: LR 1,000 ML IV ONE (07:59)
[2017-05-01] MEDS ORDERED: POLYMYXIN B SULFATE 500,000 UNIT/10 ML SYR IRR ONE (09:53)
[2017-05-01] MEDS ORDERED: BACITRACIN 50,000 UNITS/10 ML SYR IRR ONE (09:53)
[2017-05-01] MEDS ORDERED: BUPIVACAINE 0.5% 30 ML SDV ONE (09:54)
[2017-05-01] MEDS ORDERED: MIDAZOLAM 2 MG/2 ML VIAL IVP ONE (11:07)
--- NOTE | 2017-05-01 11:08 | PDANEPAE ---
ANE History of Present Illness s/f L DEBI and hardware removal ANE Past Medical History - Cardiovascular History Hx Hypertension: No Hx Arrhythmias: No Hx Chest Pain: No Hx Coronary Artery / Peripheral Vascular Disease: No Hx CHF / Valvular Disease: No Hx Palpitations: No - Pulmonary History Hx COPD: No Hx Asthma/Reactive Airway Disease: No Hx Recent Upper Respiratory Infection: No Hx Oxygen in Use at Home: No Hx Sleep Apnea: No Sleep Apnea Screening Result - Last Documented: Negative Pulmonary History Comment: CHILDHOOD ASTHMA - Neurologic History Hx Cerebrovascular Accident: No Hx Seizures: No Hx Dementia: No - Endocrine History Hx Diabetes: No - Renal History Hx Renal Disorders: No Renal History Comment: POST OP UTI W/ARM SURGERY - Liver History Hx Hepatic Disorders: No - Neurological & Psychiatric Hx Hx Neurological and Psychiatric Disorders: No - Cancer History Hx Cancer: No - Congenital Disorder History Hx Congenital Disorders: No - GI History Hx Gastrointestinal Disorders: No - Other Health History Other Health History: NEG - Chronic Pain History Chronic Pain: Yes (L HIP & LEG) - Surgical History Prior Surgeries: L ARM SURG REPAIR ANE Review of Systems Review of Systems: - Exercise capacity METS (RN): 4 METS ANE Patient History - Allergies Allergies/Adverse Reactions: No Known Allergies Allergy (Verified 04/15/17 16:53) - Home Medications Home medications: home medication list seen and reviewed Home Medications: NK [No Known Home Meds] 04/15/17 [Last Taken Unknown] - NPO status NPO Status: no food or drink >8 hours NPO Since - Liquids (Date): 04/30/17 NPO Since - Liquids (Time): 23:30 NPO Since - Solids (Date): 04/30/17 NPO Since - Solids (Time): 20:00 - Anes Hx Anes Hx: no prior problems - Smoking Hx Smoking Status: Never smoked - Alcohol Use Alcohol Use: Rarely - Family Anes Hx Family Anes Hx: none Family Hx Anesthesia Complications: NEG ANE Labs/Vital Signs - Labs - CBC WBC: reviewed and okay - Vital Signs Blood Pressure: 117/70 Heart Rate: 67 Respiratory Rate: 16 O2 Sat (%): 94 Height: 153.67 cm Weight: 45.359 kg ANE Physical Exam - Airway Neck exam: FROM Mallampati Score: Class 1 Mouth exam: normal dental/mouth exam - Pulmonary Pulmonary: no respiratory distress - Cardiovascular Cardiovascular: regular rate and rhythym - ASA Status ASA Status: I ANE Anesthesia Plan Anesthesia Plan: spinal
--- NOTE | 2017-05-01 11:17 | PDHPUP ---
History & Physical Update H&P update statement: This history and physical update is based on an assessment of the patient which was completed after admission or registration (within 24 hours), but prior to the surgery/procedure. H&P update: H&P reviewed & patient examined, no change in patient's condition since H&P completed
[2017-05-01] MEDS ORDERED: PROPOFOL/EMULSION 500 MG/50 ML BOTTLE IV ONE ×3 (11:30→13:36)
[2017-05-01] MEDS ORDERED: fentaNYL 100 MCG/2 ML INJ ONE ×2 (11:30→13:30)
[2017-05-01] MEDS ORDERED: PHENYLEPHRINE HCL 100 MCG/ML SYR ONE (11:45)
[2017-05-01] MEDS ORDERED: ONDANSETRON 4 MG/2 ML VIAL ONE (11:53)
[2017-05-01] MEDS ORDERED: DEXAMETHASONE 4 MG/ML VIAL ONE (11:53)
[2017-05-01] MEDS ORDERED: NALOXONE HCL 0.4 MG/ML INJ IVP PRN (14:41)
[2017-05-01] MEDS ORDERED: LABETALOL HCL 5 MG/ML 20 ML MDV IVP PRN (14:41)
[2017-05-01] MEDS ORDERED: PROMETHAZINE HCL 25 MG/ML INJ IVP PRN ×2 (14:41→14:46)
[2017-05-01] MEDS ORDERED: ACETAMINOPHEN 500 MG TAB PO PRN (14:41)
[2017-05-01] MEDS ORDERED: ALBUTEROL 3 ML DEYVIAL IH PRN (14:41)
[2017-05-01] MEDS ORDERED: DEXAMETHASONE 4 MG/ML VIAL IVP PRN (14:41)
[2017-05-01] MEDS ORDERED: OXYCODONE/APAP 5/325 TAB PO PRN (14:41)
[2017-05-01] MEDS ORDERED: METOCLOPRAMIDE 10 MG/2 ML VIAL IVP PRN ×2 (14:41→14:46)
[2017-05-01] MEDS ORDERED: HYDROCODONE/APAP 5/325 TAB PO PRN (14:41)
[2017-05-01] MEDS ORDERED: ONDANSETRON 4 MG/2 ML VIAL IVP PRN ×2 (14:41→14:46)
[2017-05-01] MEDS ORDERED: MEPERIDINE 25 MG/ML SYR IVP PRN (14:41)
[2017-05-01] MEDS ORDERED: fentaNYL 100 MCG/2 ML INJ IVP PRN (14:41)
[2017-05-01] MEDS ORDERED: PHENYLEPHRINE HCL 100 MCG/ML SYR IVP PRN (14:41)
[2017-05-01] MEDS ORDERED: LR 500 ML IV PRN (14:41)
[2017-05-01] MEDS ORDERED: ONDANSETRON DISINTEGRATING 4 MG TAB PO PRN (14:46)
[2017-05-01] MEDS ORDERED: PROMETHAZINE HCL 25 MG SUPPR PR PRN (14:46)
[2017-05-01] MEDS ORDERED: MAGNESIUM HYDROXIDE 30 ML UDCUP PO PRN (14:46)
[2017-05-01] MEDS ORDERED: BISACODYL 10 MG SUPP PR PRN (14:46)
[2017-05-01] MEDS ORDERED: diphenhydrAMINE 25 MG CAP PO PRN (14:46)
[2017-05-01] MEDS ORDERED: POLYETHYLENE GLYCOL 3350 17 GM PKT PO PRN (14:46)
[2017-05-01] MEDS ORDERED: CYCLOBENZAPRINE 10 MG TAB PO PRN (14:46)
[2017-05-01] MEDS ORDERED: LACTULOSE 20 GM/30 ML UDCUP PO PRN (14:46)
[2017-05-01] MEDS ORDERED: TEMAZEPAM 15 MG CAP PO PRN (14:46)
[2017-05-01] MEDS ORDERED: DIPHENOXYLATE/ATROPINE LOMOTIL 1 TAB PO PRN (14:46)
--- NOTE | 2017-05-01 14:51 | POSTOPPROG ---
Post Op Note Date of Operation: 05/01/17 Surgeon: Kilo Barnes Mechanical Ordnance Assembler: Patric Del Rio CSA Anesthesiologist: Jace Ohara Anesthesia: Spinal Pre-op Diagnosis: L hip OA and post-traumatic coxa valga Post-op Diagnosis: same Procedure: L posterior DEBI with ROZ and Removal of hardware Inf/Abcess present in the surg proc area at time of surgery?: No EBL: 100-500 (250) Drains: Hemovac
[2017-05-01] MEDS: oxyCODONE IR 5 MG TAB PO PRN ×2 (16:22→20:28)
[2017-05-01] MEDS: LR 1,000 ML IV SCH (18:24)
[2017-05-01] MEDS: ACETAMINOPHEN 325 MG TAB PO SCH (18:25)
[2017-05-01] MEDS: ceFAZolin 2 GM/DEXTROSE 100 ML IV SCH (20:27)
[2017-05-01] MEDS: FAMOTIDINE 20 MG TAB PO SCH (20:27)
[2017-05-01] MEDS: SENNOSIDES/DOCUSATE SODIUM TAB PO SCH (20:28)
--- NOTE | 2017-05-01 23:00 | GOP ---
[f rep st] OPERATIVE REPORT DATE OF OPERATION: 05/01/2017 SURGEON: Kilo Barnes MD TRANSFER TABLE OPERATOR HELPER: Patric Del Rio, CSFA, LSA. Entertainment & Media Correspondent was required due to the complexity of the case a nd the patient's condition for positioning, prepping, draping, retraction and closure. ANESTHESIA: General. PREOPERATIVE DIAGNOSIS: Left hip osteoarthritis. Posttraumatic coxa valga. POSTOPERATIVE DIAGNOSIS: Left hip osteoarthritis. Posttraumatic coxa valga. PROCEDURE PERFORMED: Left posterior approach total hip replacement with Bandar robotic guidance and re moval of hardware. Fluoroscopic supervision greater than 1 hour. FINDINGS: SPECIMENS: None. ESTIMATED BLOOD LOSS: 300 cc. INDICATIONS: The patient sustained a femoral neck fracture in June of 2016, underwent closed red uction, percutaneous pinning. She healed in valgus alignment which caused severe Trendelenburg gait. She also had mild osteoarthritis. After discussion of all available approaches and treatment optio ns, the patient elected to proceed with Bandar robotic-assisted hip replacement through the posterior a pproach with removal of hardware. The patient verbalized understanding of the risks, benefits of the procedure, and signed informed consent prior to the procedure. DESCRIPTION OF PROCEDURE: The patient was seen in the holding area, operative consent and site were signed. The patient was then taken to the operating room. After smooth induction of spinal anesthes ia was administered, she was placed in the lateral decubitus position with the affected hip facing up . Using a pegboard and axillary roll, all bony prominences were well padded. The affected hip was p repped and draped in the usual sterile fashion. Operative site was confirmed by signature. Operativ e time-out was performed. Allergies reviewed, antibiotics and TXA administered. Through a percutaneous approach over the iliac crest, 3 pins were placed in the ilium between the inn er and outer tables. The pelvic array was attached and registered. Longitudinal incision was made o angeles the posterior 3rd of the greater trochanter. This was carried through subcutaneous tissue to osman ntify the fascia matthew, which was incised in-line with the incision and the gluteus zahida was bluntl y split. The trochanteric bursa was taken down using Bovie. The three 6.5 mm cannulated screws were removed without issue or complication. The short external rotators were put on stretch, and the silvestre rt external rotators and T-shaped capsulotomy were taken in layers from the insertion on the femur an d tagged with #2 Ethibond and #2 FiberWire sutures. The quadratus femoris was partially released. With the guidance of the HERMEL DELOR robot, the templated neck cut was made. The head was excised. The isaias tabulum was exposed in standard fashion. The labrum was sharply excised. Ligamentum teres and aceta bular fossa were excised using Bovie. Transverse acetabular ligament was also partially excised. Th e pelvic checkpoint was attached to the acetabulum, was registered using HERMEL DELOR robotic arm. Sequentia l reaming was performed based on templated positioning. The appropriate size implant was then impact ed into place with the robot arm to guide version and inclination, and seemed to have excellent secur e fit. The hole cover was screwed into place. The cup was irrigated and dried, and the liner was lo cked into place. The femur was then exposed in standard fashion. Excess soft tissue removed from piriformis fossa usi ng Bovie. Excess neck was removed using a box osteotome, sequential broaching was performed up to th e desired size broach, which had good fit and fill. Trial neck and femoral stem array were attached. The anteversion, length and offset were calculated using HERMEL DELOR system. X-ray was then brought in to confirm placement of components. The trial femoral components were then removed. Anteversion lengt h and offset were calculated with HERMEL DELOR system and seemed to be as planned. The hip was then relocate d. Combined version length and offset were again calculated using HERMEL DELOR robot and again, seemed to be as planned. The hip was taken through range of motion, seemed to be stable with flexion, internal r otation, adduction, as well as extension, external rotation. Trial components were removed. Femoral stem and implant were impacted in place. The trunnion was cleaned and dried. The head was impacted onto the trunnion. The wound was copiously irrigated with sterile solution using pulse lavage inclu ding the cup. The hip was relocated, once again taken through the range of motion and seemed to be s table in all above motions. There were 8 pins and screws, and checkpoints were removed. The capsule and external rotators were r epaired through 2 drill holes in the greater trochanter. The quadratus femoris was repaired with int errupted #1 Vicryl sutures to the vastus lateralis. Soft tissue was infiltrated with a cocktail. Th e drain was placed exiting distally from beneath the fascia matthew. The wound was then closed in layer s with #2 PDS Quill suture in the fascia matthew, 0 PDS Quill suture in the deep subcutaneous fat, 3-0 V ersalok in the dermis. Dermabond and sterile dressings were applied, and the hip was placed in a hip abduction pillow. The patient was safely awakened and taken to recovery room in stable condition. All critical portions of the procedure were performed by myself, Dr. Barnes. The operative note was cr eated by myself, Dr. Barnes. I was available for emergency cross-coverage at all times. DRAINS: One Hemovac. COMPLICATIONS: None. IMPLANTS: Includes Tritanium size 48 mm cup, 0-degree polyethylene insert, Accolade 2 size 5 stem, 1 27 degrees with -4 mm head. /[id number]/MODL
[2017-05-02] MEDS: ACETAMINOPHEN 325 MG TAB PO SCH ×3 (00:13→13:02)
[2017-05-02 03:52] VITALS: RESP 16
[2017-05-02] MEDS: ceFAZolin 2 GM/DEXTROSE 100 ML IV SCH (04:11)
[2017-05-02] MEDS: LR 1,000 ML IV SCH (04:12)
[2017-05-02] MEDS: FAMOTIDINE 20 MG TAB PO SCH (08:20)
[2017-05-02] MEDS: oxyCODONE IR 5 MG TAB PO PRN (08:20)
[2017-05-02] MEDS: SENNOSIDES/DOCUSATE SODIUM TAB PO SCH (08:20)
[2017-05-02] MEDS ORDERED: ENOXAPARIN 40 MG/0.4 ML SYR SC SCH (09:00)
--- NOTE | 2017-05-02 10:21 | ASMTCMCOM ---
CM Note CM Note Notes: 05/02/2017 Case Management Note Met w/pt after reviewing chart to discuss PT recommendation for home care. Pt is in agreement. Reviewed past visits at pt request to identify previous home health agency and notified [facility] of new referral. [facility] reviewing staffing needs. [facility] can not take pt if d/c Friday. Pt has a friend, Natalia, staying with her until in her in pt home. Case Management d/c poc: Home Care with [facility] if d/c on Friday. If d/c is Friday, will need to set up alternative home care agency. Case Management to follow. Date Signed: 05/02/2017 10:21 AM Electronically Signed By:Kelsie Chavez RN
[2017-05-02 11:30] VITALS: BP 86/55; PULSE 68; TEMP 98.4; O2SAT 92
--- NOTE | 2017-05-02 11:55 | SOAPPROG ---
SOAP Progress Note Assessment/Plan: Assessment: Postoperative day 1 status post left posterior approach total hip arthroplasty with Bandar robotic guidance and removal of hardware Plan: Weight-bearing as tolerated with assistance, PT/OT Posterior precautions Lovenox for DVT prophylaxis Pain well controlled Incentive spirometry 10 times per hour Disposition: Home today 05/02/17 11:53 Subjective: No acute events. Pain well controlled. Worked well with physical therapy. Denies fevers chills nausea vomiting chest pain shortness of breath, numbness tingling weakness. Objective: Vital Signs Temp Pulse Resp BP Pulse Ox 36.9 C 68 16 86/55 L 92 05/02/17 11:29 05/02/17 11:29 05/02/17 11:29 05/02/17 11:29 05/02/17 11:29 Laboratory Results 05/02/17 04:54 05/01/17 05/02/17 05/03/17 05:59 05:59 05:59 Intake Total 3900 Output Total 1450 Balance 2450 Alert and oriented x3, no acute distress Incisions and dressings clean dry and intact, no erythema drainage or signs of infection No significant swelling or erythema Compartments soft compressible Sensation intact to light touch from L3-S1 Motor intact to EHL FHL tibialis anterior and gastrocsoleus Palpable DP PT pulses - Time Spent With Patient Time Spent With Patient: 10 - Pending Discharge Pending Discharge Within 24 Hours: Yes Pending Discharge Date: 05/02/17 Pending Discharge Time: 13:00 ICD10 Worksheet Patient Problems: Problems Problem Status Onset Femoral neck fracture Acute History of fever Acute Hyperventilation Acute Injury of left hip Acute
--- NOTE | 2017-05-02 12:22 | GDS ---
[f rep st] DISCHARGE SUMMARY PROCEDURE PERFORMED: Left posterior approach total hip arthroplasty with ROZ robotic guidance and r emoval of hardware. ADMITTING DIAGNOSES: 1. Left hip osteoarthritis. 2. Post-traumatic coxa valga. DISCHARGE DIAGNOSES: 1. Left hip osteoarthritis. 2. Post-traumatic coxa valga. HOSPITAL COURSE: This is a 61-year-old female who was admitted for the above procedure and tolerated the procedure well. Pain was well controlled. She received perioperative antibiotics and Lovenox f or DVT prophylaxis. Pain was well controlled, she ambulated well with Physical Therapy while obeyed posterior hip precautions, and was deemed safe for discharge home. DISCHARGE INSTRUCTIONS: The patient was given a handout of discharge instructions and voiced underst anding. Questions were answered. CONDITION ON DISCHARGE: Good and stable. DISPOSITION: Home. /[id number]/MODL
--- NOTE | 2017-05-02 17:20 | ASMTCMCOM ---
CM Note CM Note Notes: Pt work comp CM Earline Cruz [phone] F:[phone] faxed clinicals for auth of medication and HHC. Pt medically stable for d/c w [facility] PT, does not need RN per ALEXANDER Finley and . This CM contacted MD for HHC order, order is not in [employer] at close of business. Date Signed: 05/02/2017 05:19 PM Electronically Signed By:MORENO Minaya
--- NOTE | 2017-05-02 17:22 | PDIAF ---
- Diagnosis Code Status: Full Code - Medication Management Discharge Medications: Medications to Continue on Transfer NK [No Known Home Meds] 04/15/17 [Last Taken Unknown] Discharge Medications: Refer to the Discharge Home Medication list for PRN reason. - Orders Services needed: Physical Therapy Isolation Type: None Diet Recommendation: no restrictions on diet - Follow Up Care Current Providers and Referrals: Kilo Barnes MD [Medical Doctor] - NONE *PRIMARY CARE P,. [Primary Care Provider] -
== END 2017-05-02 14:41 | disposition home or self-care (01) | DRG 470 ==
LOC: F3N 07:34
PROVIDERS: ADMIT Orthopaedic Surgery; ATTEND Orthopaedic Surgery
PROC: 0SRB04Z Replacement of Left Hip Joint with Ceramic on Polyethylene Synthetic Substitute, Open Approach (ICD-10-PCS; principal; 2017-05-01 10:15)
PROC: 8E0YXCZ Robotic Assisted Procedure of Lower Extremity (ICD-10-PCS; principal; 2017-05-01 10:15)
PROC: 0QP704Z Removal of Internal Fixation Device from Left Upper Femur, Open Approach (ICD-10-PCS; principal; 2017-05-01 10:15)
DX: M16.12 Unilateral primary osteoarthritis, left hip (principal); M21.852 Other specified acquired deformities of left thigh
CPT/HCPCS: 97116-GP; 97161-GP; 97165-GO; J0171; J0690; J1100; J1650; J1885; J2250; J2370; J2405; J2704; J2795; J3010